=== PATIENT | female | born 1950 | race Caucasian/White ===

== ENCOUNTER 2021-04-17 08:31 | Outpatient (CLI) | payer MEDICARE | END 2021-04-17 23:59 | disposition home or self-care (01) | LOC: 64 CT 08:31 | PROVIDERS: ATTEND Family Medicine | DX: J34.2 Deviated nasal septum (principal); J34.1 Cyst and mucocele of nose and nasal sinus; Z98.890 Other specified postprocedural states | CPT/HCPCS: 70486 ==

== ENCOUNTER 2024-12-13 13:54 | Outpatient (CLI) | payer MEDICARE, OTHER ==
--- NOTE | 2024-12-13 15:00 | RADIOLOGY REPORT ---
INDICATION: ARTHRITIS COMPARISON: DI HIP,UNI [id number] (INCLUDE PELVIS) on DOS: 12/13/24 TECHNIQUE: 6 views of the lumbar spine were obtained. FINDINGS: The lumbar vertebral alignment is normal. Diffuse osteopenia. Mild multilevel degenerative disc disease of the lumbosacral spine. No acute fracture, vertebral compression deformity or aggressive osseous lesions. The paravertebral soft tissues are grossly unremarkable. IMPRESSION: No acute fracture.
--- NOTE | 2024-12-13 15:00 | RADIOLOGY REPORT ---
CLINICAL INDICATION: ARTHRITIS, LEFT TECHNIQUE: 1 radiographic views of the pelvis and 2 views of the right hip were obtained. Comparison: DI LUMBAR SPINE COMPLTE on DOS: 12/13/24 FINDINGS/IMPRESSION: There is no evidence of acute fracture or dislocation. 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
== END 2024-12-13 23:59 | disposition home or self-care (01) ==
LOC: RAD 13:54
PROVIDERS: ATTEND Nurse Practitioner Family
DX: M51.379 Other intervertebral disc degeneration, lumbosacral region without mention of lumbar back pain or lower extremity pain (principal); M16.0 Bilateral primary osteoarthritis of hip; M85.88 Other specified disorders of bone density and structure, other site
CPT/HCPCS: 72110; 73503